=== PATIENT | male | born 1985 | race Caucasian/White ===

== ENCOUNTER 2020-10-26 17:03 | Emergency (ER) | payer BC, SELFPAY ==
[2020-10-26] VITALS (38 sets, daily range): BP systolic 109–141; BP diastolic 61–91; PULSE 75–100; RESP 10–24; TEMP 36.7; O2SAT 94–98
--- NOTE | 2020-10-26 17:00 | RT.EKG_ITS ---
APPROVED REPORT Exam: Resting ECG Reason for Exam: ARM NUMBNESS Patient Location: E HR:93 bpm ECG Measurements Heart Rate 93 AXIS TX 165 P 62 QRSd 81 QRS 53 QT 354 T 24 QTc 441 Conclusion Sinus rhythm...normal P axis, V-rate 60- 99
--- NOTE | 2020-10-26 17:15 | DI.RAD_ITS ---
Exam(s) XR CHEST 2V PA LATERAL EXAM: XR CHEST 2V PA LATERAL CLINICAL HISTORY: transient chest burning. TECHNIQUE: 2D digital imaging was performed. COMPARISON: No exams were available for comparison FINDINGS: Heart size is normal. The mediastinum is not widened. Lungs are clear. No infiltrates nor pleural effusions. Tenting of the right hemidiaphragm is noted. IMPRESSION: No acute pulmonary findings. Tenting of the right hemidiaphragm noted. DATA REPOSITORY: RADIATION DOSE DELIVERED:
--- NOTE | 2020-10-26 17:27 | ED.GENADUL_ITS ---
Discharge Plan Disposition Patient Disposition: HOME Condition: Improving Discharge Details Clinical Impression: Atypical chest pain, Complaint of paresthesia Primary Care Provider: Unknown,Unknown ED Provider: Ruperto Prasad Home Meds and New Rx's Prescriptions: Continued omeprazole 20 mg Tablet,Disintegrat, Delay Rel 20 mg PO DAILY RF: 0 Discharge Instructions Instructions: Chest Pain (ED) Additional Instructions: Home to rest today. Continue your routine medications. Your work-up in the emergency department included chest x-ray, EKG, laboratory analysis with troponin. We will have our care management team arrange a follow-up for you at [facility] for recheck. Return or see nearest health care facility if you develop worsening numbness or tingling of the hands, chest pain, difficulty breathing, or any other acute concerns. If you notice any worsening of your symptoms, or any new symptoms such as vomiting, diarrhea, fever, chills, shortness of breath, chest pain, numbness, weakness, or fainting , please return immediately to the emergency department for reevaluation. Please follow up with your primary care provider as soon as possible for reassessment and reevaluation. As always, it was a pleasure participating in your medical care today. 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 Worked in the heat and humidity the past 2 days. Today he noticed some tingling of both hands, more prominent on the left. There was no weakness or missed coordination. He had not had a headache or trouble with vision or speech. He noticed some burning epigastric pain on route to home after working today and therefore sought evaluation given the family history of coronary artery disease. Patient arrives to the ER pleasant, interactive, with reassuring vital signs. He has normal motor and sensory exam of the upper and lower extremity, cranial nerves II through XII are intact without deficit. Screening EKG obtained which is unremarkable. Patient placed on a membership sales representative and laboratories obtained and he is given fluid bolus. <Ruperto Prasad DO - Last Filed: 10/26/20 20:25> Patient was seen and assessed by my colleague Dr. Lj Lazar. Please refer to his HPI, physical exam assessment and plan. At the time of signout we are pending repeat troponin and EKG. Repeat EKG has returned unchanged and unremarkable. No signs of STEMI, significant heart strain, evidence of PE, or other significant abnormality. Repeat troponin is also normal. Dr. Lazar felt that symptoms were inconsistent with ACS, and on my personal reassessment I would agree with the assessment. Patient symptoms at this time are inconsistent with dissection, SD, or massive PE. More likely they are secondary to mild thoracic outlet syndrome, mild nerve compression or GERD. However out of an abundance of precaution I do feel that it is important to follow-up closely with his PCP and cardiology on an outpatient basis. Heart score low risk. Discussed red flags which to return. I have extensively reviewed the treatment plan and discharge instructions with the patient. I have addressed all patient concerns at this time. The patient was made aware of what symptoms to monitor for that would warrant a return to the emergency department. Discussed the plan with the patient, they demonstrate verbal understanding and agreement with our assessment and plan at this time. The documentation in this chart was dictated using Prelert dictation software. Please excuse any dictation errors. HPI <Lj Lazar MD - Last Filed: 10/26/20 18:48> General Mode of arrival: ambulatory . Date/Time Provider Initiated Documentation: 10/26/20 17:04 . Limitations to Documentation: no limitations . Information obtained by: patient . History of Present Illness 35 year old M presents to the emergency department with the chief complaint of Transient chest discomfort, burning, tingling, described as mild, and is localized to the chest, left and upper extremity. Patient reports no radiation. Patient started experiencing this hour(s) and it has been intermittent. No relieving factors improve symptom(s), No exacerbating factors reported . Patient notes denies cough, diaphoresis, headaches, loss of appetite, nausea/vomiting, shortness of breath, syncope and weakness. Patient did receive the following treatments prior to arrival, none Related Data Home Medications Medication Instructions Recorded Confirmed omeprazole 20 mg PO DAILY 10/26/20 10/26/20 Allergies Allergy/AdvReac Type Severity Reaction Status Date / Time No Known Allergies Allergy Unverified 10/26/20 17:14 General Stated Complaint: Chest Pain LING: 3 Review of Systems <Lj Lazar MD - Last Filed: 10/26/20 18:48> Narrative: No syncope. Denies nausea or diaphoresis. Working in the smart with a chainsaw, significant dehydration today. No motor weakness, no unsteadiness. No facial droop or difficulty with speech, denies changes to vision. No headache. 8 systems reviewed and otherwise negative. PFSH <Lj Lazar MD - Last Filed: 10/26/20 18:48> Social History Smoking/Tobacco Use Status: Never Smoking risk assessment performed?: Yes Alcohol Intake: current Alcohol Intake frequency: holidays/special occasions only Alcohol type: beer Drug use: Never Substance use type: does not use Do you feel safe at home: Yes Do you feel safe in your relationship?: Yes Exam <Lj Lazar MD - Last Filed: 10/26/20 18:48> Narrative Exam Narrative: GEN: awake, alert, oriented 3. Pleasant, well groomed, interactive. HEAD: Normocephalic, atraumatic ENT: Mucous membranes moist, oropharynx unremarkable, External ear exam un remarkable EYES: PERRL, EOMI NECK: Full ROM, no ARDEN, no menigismus CHEST/RESP: Nontender, clear to auscultation bilateral, no wheeze/rhonchi/rales CARDIOVASCULAR: RRR, no murmur, rub shannon. 2+ Rad pulse bilateral ABDOMEN: Soft, nontender, no mass. +Bowel sounds EXT: Full ROM, no edema, no rash, normal sensation and motor throughout. Neuro: Grossly normal neurologic exam, conversant, interactive. Cranial nerves II through XII intact. [id number] intact. Gait narrow based with good heel strike. Psych: Speech fluent, thoughts congruent, affect normal Course <Lj Lazar MD - Last Filed: 10/26/20 18:48> Vital Signs Vital signs: Vital Signs Temperature 36.7 C 10/26/20 17:07 Pulse 85 10/26/20 17:07 Blood Pressure 141/81 H 10/26/20 17:07 Pulse Oximetry 98 10/26/20 17:07 Temperature 36.7 C 10/26/20 17:07 Temperature Source Temporal Artery Scan 10/26/20 17:07 Pulse 95 H 10/26/20 17:16 Respiratory Effort Non-Labored 10/26/20 17:17 Respiratory Depth Normal 10/26/20 17:17 Respiratory Pattern Normal 10/26/20 17:17 Blood Pressure 140/91 H 10/26/20 17:16 Blood Pressure Mean 100 10/26/20 17:16 Blood Pressure Position Sitting 10/26/20 17:07 Pulse Oximetry 97 10/26/20 17:16 Oxygen Delivery Method Room Air 10/26/20 17:07 Oxygen Flow Rate 0 10/26/20 17:07 Pain Level 0 10/26/20 17:07 Sign Out <Lj Lazar MD - Last Filed: 10/26/20 18:48> Sign Out Data: Sign Out Comment: followup repeat troponin/ekg Last updated by Lj Lazar MD at 10/26/20 19:26
[2020-10-26 17:43] LABS: Abs Immature Grans 0.02 10^3/uL (0.0-0.06); Absolute Basophil Count 0.04 10^3/uL (0.0-0.2); Absolute Eosinophil Count 0.05 10^3/uL (0.0-0.7); Absolute Lymphocyte Count 1.84 10^3/uL (1.2-3.4); Absolute Neutrophil Count 5.99 10^3/uL (1.2-6.7); Basophils % 0.5; Eosinophils % 0.6; HCT 46.6 % (40.0-50.0); HGB 15.9 g/dL (13.5-17.5); Immature Grans % 0.2; Lymphocytes % 21.3; MCH 29.8 pg (27.0-33.0); MCHC 34.1 % (32.0-36.0); MCV 87.3 fL (80-95); Monocytes % 8.1; Neutrophils % 69.3; Nucleated RBC 0 %; Platelet Count 244 10^3/uL (130-400); RBC 5.34 10^6/uL (4.36-5.78); RDW-SD 38.2 fL; WBC 8.64 10^3/uL (4.4-10.8)
[2020-10-26 17:54] LABS: ALT 34 U/L (16-63); AST 20 U/L (15-37); Albumin 4.5 g/dL (3.4-5.0); Alkaline Phosphatase 75 U/L (46-116); Anion Gap 8.6 mmol/L (3-11); BUN 14 mg/dL (7-18); Bilirubin, Total 0.9 mg/dL (0.2-1.0); CO2 29.4 mmol/L (21.0-32.0); CREATININE 1.2 mg/dL (0.70-1.30); Chloride 103 mmol/L (98-107); Glucose 106 mg/dL (74-106); Potassium 3.5 mmol/L (3.5-5.1); Sodium 141 mmol/L (136-145); Total Protein 7.9 g/dL (6.4-8.2)
[2020-10-26 17:55] LABS: Troponin I < 0.05 ng/mL (<0.06)
--- NOTE | 2020-10-26 17:56 | DI.VRAD_ITS ---
PROCEDURE INFORMATION: Exam: XR Chest Exam date and time: 10/26/2020 5:28 PM Age: 35 years old Clinical indication: Other: Transient chest burning TECHNIQUE: Imaging protocol: XR of the chest. Views: 2 views. COMPARISON: No relevant prior studies available. FINDINGS: Lungs: Unremarkable. No consolidation. Pleural spaces: Unremarkable. No pleural effusion. No pneumothorax. Heart/Mediastinum: Unremarkable. No cardiomegaly. Bones/joints: Unremarkable. IMPRESSION: No acute findings. Dictated and Authenticated by: Samy Tatum MD. Ordering:TIFFANY Calhoun MD
[2020-10-26] MEDS: Normal Saline 1,000 ML 1000 ML IV (18:45)
--- NOTE | 2020-10-26 18:46 | NUR.NOTE ---
REFERRAL TO [facility] FOR [facility] , NEEDS PCP TO FOLLOW UP
--- NOTE | 2020-10-26 20:00 | RT.EKG_ITS ---
APPROVED REPORT Exam: Resting ECG Reason for Exam: Chest Pain Patient Location: E HR:79 bpm ECG Measurements Heart Rate 79 AXIS UT 157 P 45 QRSd 82 QRS 46 QT 378 T 28 QTc 435 Conclusion Sinus rhythm...normal P axis, V-rate 60- 99 Physician: no stemi, unchanged. no significant st elevation or depression
[2020-10-26 20:09] LABS: Troponin I < 0.05 ng/mL (<0.06)
--- NOTE | 2020-10-26 22:27 | NUR.NOTE ---
Referral to faxed to cardiology for chest pain follow up for 2wks.Nursing Note:
--- NOTE | 2020-10-27 10:47 | PDOC.ERCMPRO ---
- If Service Date Differs Date of service: 10/27/20 Time of Service: 10:47 Care Management Progress Note Carlo is seen in the ED for atypical chest pain. At the request of ED provider, RAYMOND contacts Carlo's PCP, JOCE Engel, and requests that a follow up appointment be scheduled in 7 - 10 days. His PCP's office will contact Carlo directly to schedule the appointment.
== END 2020-10-26 20:30 | disposition home or self-care (01) ==
PROVIDERS: Emergency Medicine; Emergency Provider Student in an Organized Health Care Education/Training Program; PCP Nurse Practitioner Family
DX: R07.89 Other chest pain (principal); R20.2 Paresthesia of skin
CPT/HCPCS: 36415; 80053; 93005; 96360; 99284; 71046; 83735; 84484; 85025; 93010